=== PATIENT | female | born 1980 | race Caucasian/White ===

== ENCOUNTER 2018-04-29 15:59 | Emergency (ER) | payer OTHER ==
[~2018-04-29] VITALS: Ht 165.1 cm; Wt 50.8 kg
[2018-04-29 16:04] VITALS: BP 102/54
--- NOTE | 2018-04-29 16:20 | NUR ---
PT TAKEN TO BED 9
--- NOTE | 2018-04-29 16:28 | NUR ---
38 Y.O FEMALE CAME TO THE ED WITH C/O IF ABDOMINAL PAIN SINCE THIS MORNING. PT STATES THAT THE PAIN IS CRAMPING, INTERMITTENT AND SEVERE. PT STATES THAT SHE TOOK TWO MIDOL AROUND 10 BUT IT DID NOT HELP WITH THE PAIN. PT STATES THAT SHE FEELS THE PAIN IN HER UTERUS, FALLOPIAN TUBES AND EGGS. PT STATES THAT SHE IS ABLE TO LOCALIZE THE PAIN AND PINPIOINT THE SHARP PAINS. PT STATES SHE HAS NEVER HAD PAIN LIKE THIS BEFORE. ABD SOUNDS ARE ACTIVE, PRESENT AND IN ALL 4 QUADRANTS. LUNGS ARE CLEAR BILATERALLY. S1S2 HEARD. PT DENIES MEDICAL HX.
--- NOTE | 2018-04-29 16:38 | NUR ---
Patient being evaluated by physician at bedside.
[2018-04-29] MEDS ORDERED: KETOROLAC 60 MG/2 ML VIAL IM ONE (17:00)
[2018-04-29] MEDS ORDERED: ALPRAZolam 0.5 MG TAB PO ONE (17:00)
[2018-04-29 17:43] LABS: APPEARANCE,URINE CLEAR (CLEAR); BILIRUBIN,URINE NEGATIVE (NEGATIVE); BLOOD, URINE NEGATIVE (NEGATIVE); COLOR,URINE YELLOW (YELLOW); LEUKOCYTE ESTERASE ,URINE NEGATIVE (NEGATIVE); NITRITE, URINE NEGATIVE (NEGATIVE); UGLUCOSE NEGATIVE (NEGATIVE)
[2018-04-29 17:48] LABS: BARBITURATE, URINE NEG. ng/ml (NEG <=200); BENZODIAZEPINE, URINE NEG. ng/mL (NEG <=200); CANNABINOID, URINE NEG. ng/mL (NEG <=50); COCAINE, URINE NEG. ng/mL (NEG <=300); OPIATE, URINE NEG. ng/mL (NEG <=2000); PHENCYCLIDINE SCREEN,URINE NEG. ng/mL (NEG <=25)
[2018-04-29 19:00] VITALS: BP 110/59
--- NOTE | 2018-04-29 19:00 | NUR ---
Patient discharged with v/s stable. Written and verbal after care instructions given and explained. Patient alert, oriented and verbalized understanding of instructions. Ambulatory with steady gait. All questions addressed prior to discharge. ID band removed. Patient advised to follow up with PMD. Rx of ketorolac given. Patient educated on indication of medication including possible reaction and side effects. Opportunity to ask questions provided and answered.
== END 2018-04-29 19:00 | disposition home or self-care (01) ==
LOC: MED 15:59
DX: R10.2 Pelvic and perineal pain (principal); F41.0 Panic disorder [episodic paroxysmal anxiety]; Z88.8 Allergy status to other drugs, medicaments and biological substances
CPT/HCPCS: 76830; 80305; 81003; 81025; 96372; 99285; J1885